=== PATIENT | male | born 1935 | race Caucasian/White ===

== ENCOUNTER 2018-05-27 06:08 | Day surgery (SDC) | payer MEDICARE, OTHER ==
[2018-05-26 10:34] VITALS: BMI 28.1
[2018-05-27] MEDS ORDERED: PROPOFOL 200 MG/20 ML VIAL ONE (14:26)
[2018-05-27] MEDS ORDERED: Lidocaine 1% PF 5 ML VIAL ONE (14:26)
--- NOTE | 2018-05-27 18:16 | EKG ---
Test Reason : PREOP CARDIOVERSION Blood Pressure : / mmHG Vent. Rate : 061 BPM Atrial Rate : 214 BPM P-R Int : 000 ms QRS Dur : 178 ms QT Int : 488 ms P-R-T Axes : 000 269 089 degrees QTc Int : 491 ms Electronic ventricular pacemaker When compared with ECG of 05-FEB-2003 10:25, Previous ECG has undetermined rhythm, needs review Confirmed by DR. Joni CLAROS ([id number]) on 05/27/2018 6:16:34 PM Referred By: RADHA Confirmed By:DR. Joni CLAROS
== END 2018-05-27 09:36 | disposition home or self-care (01) ==
LOC: CCL 06:08
PROVIDERS: ATTEND Internal Medicine Cardiovascular Disease
PROC: B246ZZ4 Ultrasonography of Right and Left Heart, Transesophageal (ICD-10-PCS; principal; 2018-05-27)
DX: I48.0 Paroxysmal atrial fibrillation (principal); I48.92 Unspecified atrial flutter; I35.0 Nonrheumatic aortic (valve) stenosis; I34.0 Nonrheumatic mitral (valve) insufficiency; I35.1 Nonrheumatic aortic (valve) insufficiency; I36.1 Nonrheumatic tricuspid (valve) insufficiency; I10 Essential (primary) hypertension; I25.10 Atherosclerotic heart disease of native coronary artery without angina pectoris; E78.00 Pure hypercholesterolemia, unspecified; E78.2 Mixed hyperlipidemia; Z95.1 Presence of aortocoronary bypass graft; Z95.0 Presence of cardiac pacemaker; Z79.82 Long term (current) use of aspirin; Z79.01 Long term (current) use of anticoagulants; Z79.899 Other long term (current) drug therapy
CPT/HCPCS: 92960; 93005; 93010; 93312; J2001; J2704